=== PATIENT | male | born 1985 | race Caucasian/White ===

== ENCOUNTER 2022-09-08 17:50 | Emergency (ER) | payer SELFPAY ==
[~2022-09-08] VITALS: Ht 160 cm; Wt 69.0 kg
[2022-09-08 18:11] VITALS: BP 158/86
[2022-09-08] MEDS ORDERED: IBUPROFEN 600MG TABLET PO ONE (20:30)
[2022-09-08] MEDS ORDERED: IBUP-2029 MT (20:31)
[2022-09-08] MEDS ORDERED: PENI500T MT (20:31)
[2022-09-08] MEDS ORDERED: IBUPROFEN 600MG TABLET PO NR (21:00)
[2022-09-08] MEDS ORDERED: PENICILLIN V POTASSIUM 250MG TABLET PO SCH (21:00)
== END 2022-09-08 21:31 | disposition home or self-care (01) ==
LOC: ER 17:50
DX: K04.7 Periapical abscess without sinus (principal); F17.200 Nicotine dependence, unspecified, uncomplicated; Z79.899 Other long term (current) drug therapy
CPT/HCPCS: 99283; 99406